=== PATIENT | male | born 1985 | race Caucasian/White ===

== ENCOUNTER 2019-03-18 01:37 | Emergency (ER) | payer OTHER ==
[~2019-03-18] VITALS: Ht 167.6 cm; Wt 79.4 kg
[2019-03-18 01:39] VITALS: Ht 167.6 cm; Wt 79.4 kg
[2019-03-18 02:20] VITALS: BP 154/104
== END 2019-03-18 02:20 | disposition other institution (70) ==
LOC: ED 01:37
DX: Z02.89 Encounter for other administrative examinations (principal)